=== PATIENT | female | born 1985 | race Caucasian/White ===

== ENCOUNTER → 2020-10-21 | Outpatient (CLI) | payer BC ==
--- NOTE | 2020-10-22 12:18 | US ---
EXAMINATION TYPE: US thyroid st tissue head/neck DATE OF EXAM: 10/21/2020 COMPARISON: NONE CLINICAL HISTORY: 35-year-old female R22.0 Localized swelling, mass and lump, head. Swelling. Patient was unable to specify a specific palpable area. TECHNIQUE: Multiple sonographic images of the thyroid gland are obtained. FINDINGS: GLAND SIZE: Right Lobe: 4.1 x 1.4 x 1.3 cm Overall Parenchyma: heterogenous Left Lobe: 4.7 x 1.8 x 1.3 cm Overall Parenchyma: heterogeneous Isthmus Thickness: 0.32 cm NODULES RIGHT: # of nodules measured on right: 1 1. 0.4 X 0.4 x 0.3 cm, mid-lower, hypoechoic nodule, which is wider than tall, with ill-defined mar gins, without echogenic foci. Prior size: No prior. LEFT: # of nodules measured on left: 0 ISTHMUS: # of nodules measured in the isthmus: 0 Bilateral neck scanned, no evidence of lymphadenopathy. IMPRESSION: Tiny 4 mm nodule in the right. No other discrete nodules are seen.
== END | disposition home or self-care (01) ==
LOC: RADUSWWP 16:37
PROVIDERS: ATTEND Obstetrics & Gynecology
DX: E04.1 Nontoxic single thyroid nodule (principal)
CPT/HCPCS: 76536

== ENCOUNTER 2022-06-06 09:42 | Inpatient (IN) | payer BC ==
--- NOTE | 2022-06-06 08:00 | P.HPOB ---
History of Present Illness H&P Date: 06/06/22 Chief Complaint: Breech presentation at term This is a 37-year-old 1 para 0 woman with an estimated due date of 06/13/2022 based on LMP consistent with first trimester ultrasound. She is admitted for primary low transverse section secondary to persistent br eech presentation. Her has been complicated by findings of a marginal cord insertion on ultrasound. testing and serial growth ultrasound have all been within normal limits. She also was created positive at the beginning of . Laboratory data: Blood type O positive, antibody screen negative, rubella immune, VDRL nonreactive, hepatitis B surface antigen negative, HIV negative, gonorrhea and clinic cultures negative, maternal T 21 testing within normal limits, 1 hour glucose tolerance testing abnormal, 3 hour glucose tolerance testing normal, group B strep negative.
[2022-06-06] MEDS ORDERED: LACTATED RINGERS 1,000 ML IV ONE (09:48)
[2022-06-06] MEDS ORDERED: CITRIC ACID-SODIUM CITRATE 15 ML CUP PO ONE (10:00)
[2022-06-06 10:51] LABS: Basophils % (A) 0 %; Eosinophils # (A) 0.1 k/uL (0-0.7); Eosinophils % (A) 1 %; HCT 36.7 % (34.0-46.0); HGB 12.2 gm/dL (11.4-16.0); Hypochromasia Slight; Lymphocytes # (A) 1.6 k/uL (1.0-4.8); Lymphocytes % (A) 26 %; MCH 28.3 pg (25.0-35.0); MCHC 33.3 g/dL (31.0-37.0); MCV 85.1 fL (80.0-100.0); Mean Platelet Volume 11.1; Monocytes # (A) 0.3 k/uL (0-1.0); Monocytes % (A) 5 %; Neutrophils # (A) 4.1 k/uL (1.3-7.7); Neutrophils % (A) 66 %; Platelet Count 147 k/uL (150-450); RBC 4.32 m/uL (3.80-5.40); RDW 15.1 % (11.5-15.5); WBC 6.2 k/uL (3.8-10.6)
[2022-06-06] MEDS ORDERED: ONDANSETRON 4 MG/2 ML VIAL IVP PRN ×2 (12:55→13:11)
[2022-06-06] MEDS ORDERED: NALOXONE 0.4 MG/ML 1 ML VIAL IV PRN ×2 (12:55→13:11)
[2022-06-06] MEDS ORDERED: MORPHINE SULFATE 2 MG/ML SYRINGE IVP PRN (12:55)
[2022-06-06] MEDS ORDERED: diphenhydrAMINE 50 MG/ML 1 ML VIAL IVP PRN ×3 (12:55→13:11)
[2022-06-06 13:03] VITALS: RESP 16
--- NOTE | 2022-06-06 13:10 | P.OP ---
Date of Procedure: 06/06/22 Preoperative Diagnosis: Intrauterine at 39 weeks gestation Breech presentation Marginal cord insertion Postoperative Diagnosis: Intrauterine gestation at 39 weeks Isai breech presentation Velamentous cord insertion Surgeon: Ernestina Pastrana Radio Artist #1: Lavell Mansfield Estimated Blood Loss (ml): 500 IV fluids (ml): 1,000 Pathology: other (Placenta) Condition: stable Disposition: floor Indications for Procedure: 37-year-old 1 para 0 admitted at 39 weeks gestation for primary section for breech presentation. History of marginal cord insertion by ultrasound antenatally Operative Findings: Male infant in the isai breech presentation with Apgars of 9 at 1 minute and 9 at 5 minutes weighing 6 lbs. 0 oz., 2720 g. Intact placenta with velamentous cord insertion. Normal-appearing bilateral fallopian tubes and ovaries. Description of Procedure: After the patient was met preoperatively and all questions were answered, she was taken to the operating room where spinal anesthetic was administered without incident. She was in positioned, prepped and draped in the dorsal supine position with a Reyes catheter in place. After anesthetic was confirmed adequate a low transverse skin incision was made and carried down to the underlying fascia sharply. Fascia was incised in the midline and extended bilaterally with the Boyd scissors. Superior aspect of the fascial incision was grasped and the underlying rectus muscles dissected off sharply. Inferior aspect of the incision was grasped and the underlying rectus muscles dissected off sharply. The rectus muscles were then bluntly in the midline and the peritoneum was tented up and entered sharply with Metzenbaum scissors. The peritoneal incision was extended inferiorly and superiorly with excellent visualization the bladder. Bladder blade was placed and a low transverse uterine incision was made. This was carried down to the underlying amniotic membranes sharply. Membranes were ruptured and clear fluid was noted. The uterine incision was extended bilaterally bluntly. The infant was then delivered from the complete breech presentation. The was delivered to the level of the scapula and then arms were delivered and a rotational fashion. Head was delivered with flexion without difficulty. The infant was delivered onto the field and the nose and mouth were bulb suctioned and the cord was clamped and cut. The central was then delivered manually and the cord was noted to be I complete velamentous insertion. The uterus was exteriorized and cleared of all clot and debris. Uterine incision was delineated using Umanzor clamps and closed in a running locked fashion with 0 Vicryl suture followed by second imbricating layer of the same. 2 additional [id number] sutures were placed to the left of the midline for hemostasis which was then achieved. The uterus was returned to the abdomen and the gutters were cleared of all clot and debris. The uterine incision was then reinspected and noted to be hemostatic. The fascial edges, rectus muscles and peritoneal edges were inspected and Bovie electrocautery was utilized were necessary for hemostasis. The rectus muscles were then reapproximated in the midline. The fascia was closed in a running fashion with 0 Vicryl suture. The subcuticular tissue was copiously suction irrigated and closed with 4-0 chromic. The skin was then closed with 4-0 Vicryl in a subcuticular fashion. The REPORTED to me as correct by the operating room staff. Patient was transported recovery in stable condition. Placenta to pathology.
[2022-06-06] MEDS ORDERED: diphenhydrAMINE 25 MG CAP PO PRN (13:11)
[2022-06-06] MEDS ORDERED: HYDROmorphone 1 MG/ML 1 ML SYRINGE IVP PRN (13:11)
[2022-06-06] MEDS ORDERED: METOCLOPRAMIDE 5 MG/ML 2 ML VIAL IVP PRN (13:11)
[2022-06-06] MEDS ORDERED: diphenhydrAMINE 50 MG CAP PO PRN (13:11)
[2022-06-06] MEDS ORDERED: SIMETHICONE 80 MG CHEWABLE PO PRN (13:11)
[2022-06-06] MEDS ORDERED: HYDROmorphone 2 MG TAB PO PRN (13:11)
[2022-06-06] MEDS ORDERED: ZOLPIDEM 5 MG TAB PO PRN (13:11)
[2022-06-06] MEDS ORDERED: OXYTOCIN 30 UNITS/500 ML NS 30 UNIT in SALINE 1 500ML.BAG IV SCH (13:15)
[2022-06-06] MEDS: LACTATED RINGERS 1,000 ML IV SCH ×3 (14:27→20:05)
[2022-06-06] MEDS: ACETAMINOPHEN TAB 500 MG TAB PO SCH (20:02)
[2022-06-06] MEDS: SENNOSIDES-DOCUSATE SODIUM 1 EACH TAB PO SCH (20:03)
[2022-06-07] MEDS ORDERED: IBUPROFEN IV 800 MG in SODIUM CHLORIDE 0.9% 250 ML IV PRN ×2
[2022-06-07] MEDS: IBUPROFEN 600 MG TAB PO SCH ×5 (01:32→21:33)
[2022-06-07] MEDS: LACTATED RINGERS 1,000 ML IV SCH ×2 (01:41→06:10)
[2022-06-07] MEDS: ACETAMINOPHEN TAB 500 MG TAB PO SCH ×5 (03:47→21:32)
[2022-06-07 05:05] LABS: Basophils % (A) 0 %; Eosinophils % (A) 0 %; HGB 11.5 gm/dL (11.4-16.0); Lymphocytes # (A) 1.3 k/uL (1.0-4.8); Lymphocytes % (A) 12 %; MCH 28.6 pg (25.0-35.0); MCHC 33.8 g/dL (31.0-37.0); MCV 84.5 fL (80.0-100.0); Mean Platelet Volume 11.4; Monocytes # (A) 0.5 k/uL (0-1.0); Monocytes % (A) 4 %; Neutrophils # (A) 9.5 k/uL (1.3-7.7); Neutrophils % (A) 83 %; Platelet Count 135 k/uL (150-450); RBC 4.02 m/uL (3.80-5.40); RDW 15.1 % (11.5-15.5); WBC 11.5 k/uL (3.8-10.6)
[2022-06-07] MEDS: SENNOSIDES-DOCUSATE SODIUM 1 EACH TAB PO SCH ×2 (08:03→21:33)
--- NOTE | 2022-06-07 09:00 | P.PN ---
Progress Note - Text Progress Note Date: 06/07/22 Postoperative day 1 status post section under spinal anesthesia, and i ntrathecal morphine given for postoperative analgesia, patient doing well, there is no anesthesia related complications, Patient had no headache, vital signs stable , Assessment and plan= postop day 1 status post , doing well there is no anesthesia related complication.
--- NOTE | 2022-06-07 12:28 | P.PNOBGPC ---
Subjective - Subjective Principal diagnosis: Post op day 1 Interval history: nausea last pm now resolved and able to eat some today Patient reports: Reports appetite normal, Reports voiding normally, Reports pain well controlled, Reports ambulating normally, Denies dizzy ambulation, Denies nauseated [place]: doing well, nursing well Objective - Vital Signs Latest vital signs: Vital Signs Temp Pulse Resp BP BP Pulse Ox 06/07/22 08:00 97.9 F 95 16 132/86 97 06/07/22 03:00 98.0 F 90 16 123/89 06/07/22 01:00 16 06/07/22 00:00 98.1 F 99 16 148/87 06/06/22 21:59 16 06/06/22 21:30 85 16 143/94 06/06/22 20:00 98.0 F 86 16 143/90 06/06/22 15:22 97.5 F L 70 16 118/56 96 06/06/22 14:51 71 16 113/59 96 06/06/22 14:21 68 16 117/60 96 06/06/22 13:51 64 16 122/64 95 06/06/22 13:36 77 16 122/64 98 06/06/22 13:21 75 16 126/70 97 06/06/22 13:06 77 16 125/63 97 06/06/22 12:51 97.1 F L 75 16 119/69 98 Intake and Output 06/06/22 06/07/22 06/07/22 22:59 06:59 14:59 Intake Total 500 Output Total 400 Balance -400 500 Intake: Oral 500 Output: Urine 400 Other: # Voids 2 - Exam Extremities: Present: normal, edema Abdomen: Present: normal appearance, soft. Absent: tenderness Incision: Present: normal, dry, intact. Absent: erythematous Uterus: Present: normal, firm. Absent: tenderness - Labs Labs: Abnormal Lab Results - Last 24 Hours (Table) 06/07/22 Range/Units 04:48 WBC 11.5 H (3.8-10.6) k/uL Plt Count 135 L (150-450) k/uL Neutrophils # 9.5 H (1.3-7.7) k/uL Assessment and Plan (1) Breech presentation Current Visit: Yes Status: Acute Code(s): O32.1XX0 - MATERNAL CARE FOR BREECH PRESENTATION, UNSP SNOMED Code(s): 7141591 (2) Advanced maternal age (AMA) in Current Visit: Yes Status: Acute Code(s): LQK4523 - SNOMED Code(s): 484080040 (3) Velamentous insertion of umbilical cord Current Visit: Yes Status: Acute Code(s): O43.129 - VELAMENTOUS INSERTION OF UMBILICAL CORD, UNSP TRIMESTER SNOMED Code(s): 96850088 (4) S/P section Current Visit: Yes Status: Acute Code(s): Z98.891 - HISTORY OF UTERINE SCAR FROM PREVIOUS SURGERY SNOMED Code(s): 812941940 Plan: POD 1 s/p primary LTCS for breech with findings of velamentous cord insertion. Recovering well this am, routine care.
[2022-06-08] MEDS: IBUPROFEN 600 MG TAB PO SCH ×2 (00:06→08:13)
[2022-06-08] MEDS: ACETAMINOPHEN TAB 500 MG TAB PO SCH (05:21)
--- NOTE | 2022-06-08 07:13 | P.DS ---
Providers Date of admission: 06/06/22 09:42 Expected date of discharge: 06/08/22 Attending physician: Ernestina Pastrana Primary care physician: Stated None - Discharge Diagnosis(es) (1) Breech presentation Current Visit: Yes Status: Acute (2) Advanced maternal age (AMA) in Current Visit: Yes Status: Acute (3) Velamentous insertion of umbilical cord Current Visit: Yes Status: Acute (4) S/P section Current Visit: Yes Status: Acute Hospital Course: this is a 37-year-old 1 now para 1 woman who is admitted at 39 weeks gestation for primary low transverse section secondary to breech presentation. She didn't follow throughout her for findings of a marginal cord insertion on ultrasound as well as created in the first trimester. Her was otherwise unremarkable. Following admission she went to the operating room where she underwent an unremarkable primary low transverse section. Findings at the time of surgery were significant for a velamentous cord insertion. She was delivered of a liveborn male infant in the isai breech presentation weighing 6 lbs. 0 oz. with Apgars of 8 at 1 minute and 9 at 5 minutes. Please see the operative report for details. The patient's postoperative course was unremarkable. She did have some significant nausea and vomiting on postoperative day 0 that resolved by the morning of postoperative day #1. By postoperative day #2 she was ambulating and voiding without difficulty, postop labs within normal limits, vital signs were stable and her incision appeared intact and well-healing. She had minimal lochia. She was breast-feeding successfully. She was therefore discharged home on postoperative day #2 with routine instructions for care and follow-up. Patient Condition at Discharge: Good Plan - Discharge Summary Discharge Rx Participant: Yes New Discharge Prescriptions: New Acetaminophen Tab [Tylenol] 1,000 mg PO Q6H tab Ibuprofen [Motrin] 600 mg PO Q6H tab No Action Vit No.179/Iron/Folic [ Tablet] 1 tab PO DAILY Discharge Medication List Vit No.179/Iron/Folic [ Tablet] 1 tab PO DAILY 06/06/22 [History] Acetaminophen Tab [Tylenol] 1,000 mg PO Q6H tab 06/08/22 [Rx] Ibuprofen [Motrin] 600 mg PO Q6H tab 06/08/22 [Rx] Follow up Appointment(s)/Referral(s): Ernestina Pastrana MD [STAFF PHYSICIAN] - 2 Weeks Activity/Diet/Wound Care/Special Instructions: Follow-up in 2 weeks after surgery in the office. Call the office with any concerning signs or symptoms including fever greater than 101, severe abdominal pain, heavy vaginal bleeding, signs of wound infection, increased swelling or redness of the lower extremities, signs of depression. No driving for 2 weeks after surgery. No heavy lifting or vigorous activity until reevaluated in the office. No intercourse for 6 weeks after delivery. Discharge Disposition: HOME SELF-CARE
[2022-06-08 08:12] VITALS: BP 131/81; PULSE 91; TEMP 98.3
[2022-06-08] MEDS: SENNOSIDES-DOCUSATE SODIUM 1 EACH TAB PO SCH (08:13)
== END 2022-06-08 13:10 | disposition home or self-care (01) | DRG 788 ==
LOC: 4FBP 09:42
PROVIDERS: ADMIT Obstetrics & Gynecology; ATTEND Obstetrics & Gynecology
PROC: 10D00Z1 Extraction of Products of Conception, Low, Open Approach (ICD-10-PCS; principal; 2022-06-06 12:00)
DX: O32.1XX0 Maternal care for breech presentation, not applicable or unspecified (principal); O43.123 Velamentous insertion of umbilical cord, third trimester; Z28.310 Unvaccinated for COVID-19; Z3A.39 39 weeks gestation of pregnancy; Z37.0 Single live birth
CPT/HCPCS: 85025; 86850; 86900; 86901; 88307

== ENCOUNTER 2022-06-15 14:07 | Outpatient (CLI) | payer BC ==
[2022-06-15 15:17] LABS: Basophils # (A) 0.1 k/uL (0-0.2); Basophils % (A) 1 %; Eosinophils # (A) 0.2 k/uL (0-0.7); Eosinophils % (A) 2 %; HCT 37.4 % (34.0-46.0); HGB 12.1 gm/dL (11.4-16.0); Lymphocytes # (A) 1.7 k/uL (1.0-4.8); Lymphocytes % (A) 24 %; MCH 27.4 pg (25.0-35.0); MCHC 32.4 g/dL (31.0-37.0); MCV 84.6 fL (80.0-100.0); Mean Platelet Volume 7.8; Monocytes # (A) 0.4 k/uL (0-1.0); Monocytes % (A) 5 %; Neutrophils # (A) 4.8 k/uL (1.3-7.7); Neutrophils % (A) 66 %; Platelet Count 253 k/uL (150-450); RBC 4.42 m/uL (3.80-5.40); RDW 15.3 % (11.5-15.5); WBC 7.2 k/uL (3.8-10.6)
[2022-06-15 16:34] VITALS: BP 138/81; PULSE 79; RESP 18; TEMP 97.5
--- NOTE | 2022-07-22 10:03 | P.MSEPDOC ---
Presenting Problems - Arrival Data Date of Arrival on Unit: 06/15/22 Time of Arrival on Unit: 14:07 Mode of Transport: Ambulatory - Complaint OB-Reason for Admission/Chief Complaint: Other Comment: pt is postpartm and delivered via primary section for breech on 06/06, presenting today for large amount of bleeding with clots around 1230- 1245 today Medical History - Information : 1 Para: 0 Term: 0 : 0 Abortions: Spontaneous or Elective: 0 Number of Living Children: 0 - Gestational Age Gestational Age by ARIELLA (wks/days): 41 Weeks and 2 Days Review of Systems - Review of Systems Constitutional: No problems Breast: No problems ENT: No problems Cardiovascular: No problems Respiratory: No problems Gastrointestinal: No problems Genitourinary: No problems Musculoskeletal: No problems Neurological: No problems Skin: No problems Vital Signs - Temperature Temperature: 97.5 F Temperature Source: Temporal Artery Scan - Pulse Right Brachial Pulse Rate: 79 Pulse Assessment Method: Automatic Cuff - Respirations Respiratory Rate: 18 Oxygen Delivery Method: Room Air - Blood Pressure Right Arm Blood Pressure: 138/81 Blood Pressure Mean: 100 Blood Pressure Source: Automatic Cuff Physician Notification - Physician Notified Physician Notified Date: 06/15/22 Physician Notified Time: 14:30 Physician: Ernestina Pastrana Order Received: Yes - Notification Comment Comment: cbc obtained, results wnl, minimal bleeding while here, given oral hydration, dc'd home, pt has follow up appt on Sunday in the office Maternal Triage Index - Maternal Triage Index Presenting for scheduled procedure w/no complaint: No - Stat/Priority 1 Stat Priority 1: No - Urgent/Priority 2 Urgent Priority 2: No - Prompt/Priority 3 Prompt Priority 3: No - Non-Urgent/Priority 4 Non-Urgent Priority 4: Yes Criteria Met for Priority 4: pt is postpartm and delivered via primary section for breech on 06/06, presenting today for large amount of bleeding with clots around 2270-4529 today Disposition - Disposition OB Disposition: Triage, Discharge to home, Written follow up instructions reviewed Discharge Date: 06/15/22 Discharge Time: 15:35 I agree with the RN Medical Screening Exam: Yes Case reviewed; plan agreed upon as documented in EMR&OBIX.: Yes Diagnosis: vaginal bleeding
== END 2022-06-15 15:35 | disposition home or self-care (01) ==
LOC: FBPOP 14:07
PROVIDERS: ATTEND Obstetrics & Gynecology
DX: O72.1 Other immediate postpartum hemorrhage (principal); Z88.1 Allergy status to other antibiotic agents
CPT/HCPCS: 36415; 85025; 99213

== ENCOUNTER 2024-09-26 04:29 | Inpatient (IN) | payer BC ==
[2024-09-26] MEDS: LACTATED RINGERS 1,000 ML IV SCH (05:45)
[2024-09-26] MEDS ORDERED: METHYLERGONOVINE 0.2 MG/ML 1 ML AMP IM PRN (05:47)
[2024-09-26] MEDS ORDERED: CARBOPROST TROMETHAMINE 250 MCG/ML 1 ML AMP IM PRN (05:47)
[2024-09-26] MEDS ORDERED: TRANEXAMIC 1,000 MG/100ML-NACL 1,000 MG in EMPTY BAG 1 BAG IV PRN (05:47)
[2024-09-26] MEDS ORDERED: miSOPROStoL 200 MCG TAB PO PRN (05:47)
[2024-09-26] MEDS ORDERED: OXYTOCIN 10 UNIT/ML 1 ML VIAL IM PRN (05:47)
[2024-09-26] MEDS ORDERED: TERBUTALINE 1 MG/ML VIAL SQ PRN (05:47)
[2024-09-26] MEDS ORDERED: LIDOCAINE 0.5% (PF) 5 MG/ML (50 ML SDV) SQ PRN (05:47)
[2024-09-26] MEDS ORDERED: miSOPROStoL 200 MCG TAB RECTAL PRN (05:47)
[2024-09-26 05:55] LABS: Anisocytosis Slight; Basophils % (A) 0 %; Eosinophils # (A) 0.1 k/uL (0-0.7); Eosinophils % (A) 1 %; HCT 34.1 % (34.0-46.0); HGB 11.2 gm/dL (11.4-16.0); Hypochromasia Slight; Lymphocytes # (A) 1.4 k/uL (1.0-4.8); Lymphocytes % (A) 14 %; MCH 25.6 pg (25.0-35.0); MCHC 32.8 g/dL (31.0-37.0); Mean Platelet Volume 9.9; Microcytosis Slight; Monocytes # (A) 0.5 k/uL (0-1.0); Monocytes % (A) 5 %; Neutrophils # (A) 7.7 k/uL (1.3-7.7); Neutrophils % (A) 78 %; Platelet Count 168 k/uL (150-450); RBC 4.38 m/uL (3.80-5.40); RDW 16.1 % (11.5-15.5); WBC 9.9 k/uL (3.8-10.6)
[2024-09-26] MEDS: OXYTOCIN 30 UNITS/500 ML NS 30 UNIT in SALINE 1 500ML.BAG IV SCH (08:06)
--- NOTE | 2024-09-26 09:21 | P.HPOB ---
History of Present Illness H&P Date: 09/26/24 Chief Complaint: contractions Ms. Guillory is a 39 year old at 41 weeks and 1 day with EDC of 09/18/2024 by LMP consistent with early US who presents with contractions in latent labor. She does have a history of 1 prior section for breech presentation and desires TOLAC. Risks of TOLAC have been reviewed with the patient including <1% chance of uterine rupture. The fetus is estimated at approximately 8 pounds based on a 38 week US. The patient has likely GDM. work-up: blood type O positive, antibody screen negative, rubella immune, VDRL non-reactive, HBsAg negative, HIV negative, HCV Ab non-reactive, gonorrhea negative, chlamydia negative, 1 hour GTT abnormal at 177 (3 hour never completed), GBS negative. Past Medical History Past Medical History: No Reported History History of Any Multi-Drug Resistant Organisms: None Reported Additional Past Surgical History / Comment(s): wisdom teeth, 2021 Past Anesthesia/Blood Transfusion Reactions: No Reported Reaction Past Psychological History: No Psychological Hx Reported Smoking Status: Never smoker Past Alcohol Use History: None Reported Past Drug Use History: None Reported - Past Family History Mother Family Medical History: Rheumatoid Arthritis (RA) Medications and Allergies Home Medications Medication Instructions Recorded Confirmed Type Vit No.179/Iron/Folic 1 tab PO DAILY 06/06/22 09/25/24 History [ Tablet] Acetaminophen Tab [Tylenol] 1,000 mg PO Q6H PRN 09/25/24 09/25/24 History Aspirin 81 mg PO DAILY 09/25/24 09/25/24 History Allergies Allergy/AdvReac Type Severity Reaction Status Date / Time azithromycin AdvReac Rash/Hives Verified 09/26/24 04:37 Exam Vital Signs Temp Resp BP Pulse Ox 09/26/24 05:48 97.5 F L 17 135/87 100 09/26/24 05:40 97.5 F L 17 135/87 100 Intake and Output 09/25/24 09/26/24 09/26/24 22:59 06:59 14:59 Other: # Voids 1 Weight 93.894 kg Focused physical exam is performed. This is a healthy-appearing in no apparent distress. Breathing is non-labored. Abdomen is gravid and non-tender. Cervical exam is /-1. AROM is undertaken without much fluid return. Extremities non-tender and non-edematous. heart tones are Category I and tocometer is graphing irregular contractions. Results Result Diagrams: 09/26/24 05:47 Abnormal Lab Results - Last 24 Hours (Table) 09/26/24 Range/Units 05:47 Hgb 11.2 L (11.4-16.0) gm/dL MCV 78.0 L (80.0-100.0) fL RDW 16.1 H (11.5-15.5) % Assessment and Plan Assessment: 39 year old at 41 weeks and 1 day presenting with contractions, TOLAC Plan: Admit, clear liquid diet, pitocin per protocol, continuous EFM and tocometer.
[2024-09-26 09:23] LABS: Glucose,Whole Blood 111 mg/dL (70-110)
[2024-09-26] MEDS: CALCIUM CARBONATE 500 MG CHEWABLE PO PRN (09:46)
[2024-09-26] MEDS ORDERED: LANOLIN CREAM 1 GM TUBE TOPICAL PRN (14:46)
[2024-09-26] MEDS ORDERED: BENZOCAINE/MENTHOL SPRAY 1 GM/SPRAY AEROSOL TOPICAL PRN (14:46)
[2024-09-26] MEDS ORDERED: HYDROCORTISONE 2.5% RECTAL CREAM 30 GM TUBE RECTAL PRN (14:46)
[2024-09-26] MEDS ORDERED: diphenhydrAMINE 25 MG CAP PO PRN (14:46)
[2024-09-26] MEDS ORDERED: diphenhydrAMINE 50 MG/ML 1 ML VIAL IVP PRN ×2 (14:46)
[2024-09-26] MEDS ORDERED: diphenhydrAMINE 50 MG CAP PO PRN (14:46)
[2024-09-26] MEDS ORDERED: ZOLPIDEM 5 MG TAB PO PRN (14:46)
[2024-09-26] MEDS ORDERED: SIMETHICONE 80 MG CHEWABLE PO PRN (14:46)
--- NOTE | 2024-09-26 14:46 | P.PROBDLV ---
Vaginal Delivery Note - . Vaginal Delivery Note: DATE OF SERVICE: 09/26/2024 PROCEDURE: Normal Vaginal Delivery ATTENDING: Dr. Maryellen Morris MD ESTIMATED BLOOD LOSS: 300 mL FINDINGS: VFI, Apgars 9/9. Weight 7 pounds and 2 ounces (3245 grams) PROCEDURE: Ms. Guillory is a 39 year old at 41 weeks and 1 day presenting to labor and delivery in early labor. For further details, please review the admitting H&P. Pitocin augmentation was started. AROM was undertaken at 754 revealing clear amniotic fluid. The patient received epidural anesthesia per her request. The patient was completely dilated at 1243. She pushed effectively with Category I to II heart tones. A viable female infant was delivered at 1420. The was placed on the maternal abdomen and bulb suctioned. The infant was noted to be spontaneously crying. Cord was clamped and cut after a 60-second delay. The infant was handed off to the pediatric team. Placenta was delivered whole with gentle cord traction at 1424. Oxytocin was started to facilitate uterine tone. Uterine fundus was found to be firm and below the umbilicus upon fundal massage. Thorough examination of the cervix, vagina, periurethral area, and perineum revealed bilateral sulcal lacerations that were infiltrated with lidocaine and repaired with 2-0 Vicryl in a running fashion. The patient is stable and allowed to begin the bonding process.
[2024-09-26 14:54] VITALS: RESP 16
[2024-09-26] MEDS: IBUPROFEN 800 MG TAB PO SCH (17:15)
[2024-09-26] MEDS: ACETAMINOPHEN TAB 500 MG TAB PO SCH (20:32)
[2024-09-26] MEDS: SENNOSIDES-DOCUSATE SODIUM 1 EACH TAB PO SCH (20:32)
[2024-09-27 07:15] LABS: Anisocytosis Slight; Basophils % (A) 0 %; Eosinophils % (A) 0 %; HGB 9.2 gm/dL (11.4-16.0); Hypochromasia Moderate; Lymphocytes % (A) 13 %; MCHC 32.9 g/dL (31.0-37.0); MCV 79.1 fL (80.0-100.0); Mean Platelet Volume 9.8; Monocytes # (A) 0.8 k/uL (0-1.0); Monocytes % (A) 5 %; Neutrophils # (A) 11.8 k/uL (1.3-7.7); Neutrophils % (A) 79 %; Platelet Count 136 k/uL (150-450); RBC 3.54 m/uL (3.80-5.40); RDW 16.3 % (11.5-15.5); WBC 14.8 k/uL (3.8-10.6)
[2024-09-27 08:45] VITALS: BP 104/70; PULSE 106; TEMP 97.7
--- NOTE | 2024-09-27 09:11 | P.DS ---
Providers Date of admission: 09/26/24 05:38 Expected date of discharge: 09/27/24 Attending physician: Maryellen Morris MD Primary care physician: Stated None Hospital Course: Ms. Guillory is a 39 year old now PPD#1 s/p . The patient is doing well this morning and had no acute events overnight. She has no complaints this morning. She reports minimal lochia, passing flatus, voiding without difficulty, ambulating, and eating/drinking without nausea or vomiting. doing well at bedside. She denies chest pain, shortness of breathing, fevers, or chills overnight. She denies pain or swelling in the legs. restrictions are reviewed with the patient including pelvic rest for 6 weeks. The patient is encouraged to call the office if she experiences any heavy bleeding, foul-smelling discharge, breast complaints, or any if she has any other concerns. She will follow up in the office with in 6 weeks for exam. All questions are answered. Assessment: 39 year old now PPD#1 s/p Patient Condition at Discharge: Good Plan - Discharge Summary New Discharge Prescriptions: No Action Vit No.179/Iron/Folic [ Tablet] 1 tab PO DAILY Aspirin 81 mg PO DAILY Acetaminophen Tab [Tylenol] 1,000 mg PO Q6H PRN PRN Reason: Pain Discharge Medication List Vit No.179/Iron/Folic [ Tablet] 1 tab PO DAILY 06/06/22 [History] Acetaminophen Tab [Tylenol] 1,000 mg PO Q6H PRN 09/25/24 [History] Aspirin 81 mg PO DAILY 09/25/24 [History] Follow up Appointment(s)/Referral(s): Maryellen Morris MD [STAFF PHYSICIAN] - 11/10/24 11:30 am Activity/Diet/Wound Care/Special Instructions: Instructions 1. Do not begin any exercise program for 3 weeks. 2. Do not resume sexual relations for 6 weeks or longer if uncomfortable. 3. You may take tub baths or showers at any time. 4. You may use tampons if desired after 6 weeks. 5. Keep any areas repaired with stitches clean and dry. 6. If you are not nursing, wear a good fitting, supportive bra during the day and limit fluid intake for at least 1 week to prevent breast engorgement. 7. Call the office, , within the next week to make appointment for your 6 week checkup if it has not already been made. 8. Report any of the following occurrences to the doctor promptly: a. Heavy, excessive bleeding b. Chills, fever c. Burning or frequency of urination d. Pain or redness and breasts if nursing e. Increasing pain or swelling of vulva (stitches). In addition to the above instructions, the following additional should be followed: 1. No heavy lifting or straining (exercising) until after 6 week checkup. 2. Keep abdominal incision clean and dry: You may wear a dressing if more comfortable. 3. Make office appointment for 2 weeks after delivery date. Discharge Disposition: HOME SELF-CARE
== END 2024-09-27 15:30 | disposition home or self-care (01) | DRG 806 ==
LOC: FBPOP 04:29 → 4FBP 05:38
PROVIDERS: ADMIT Obstetrics & Gynecology Obstetrics; ATTEND Obstetrics & Gynecology
PROC: 3E033VJ Introduction of Other Hormone into Peripheral Vein, Percutaneous Approach (ICD-10-PCS; principal; 2024-09-26)
PROC: 0UQGXZZ Repair Vagina, External Approach (ICD-10-PCS; principal; 2024-09-26)
PROC: 10907ZC Drainage of Amniotic Fluid, Therapeutic from Products of Conception, Via Natural or Artificial Opening (ICD-10-PCS; principal; 2024-09-26)
PROC: 10E0XZZ Delivery of Products of Conception, External Approach (ICD-10-PCS; principal; 2024-09-26)
DX: O34.219 Maternal care for unspecified type scar from previous cesarean delivery (principal); O71.4 Obstetric high vaginal laceration alone; Z37.0 Single live birth; O24.429 Gestational diabetes mellitus in childbirth, unspecified control; N85.8 Other specified noninflammatory disorders of uterus; O48.0 Post-term pregnancy; Z3A.41 41 weeks gestation of pregnancy; Z79.82 Long term (current) use of aspirin; Z79.899 Other long term (current) drug therapy; Z88.1 Allergy status to other antibiotic agents
CPT/HCPCS: 59025; 85025; 86850; 86900; 86901; 99213